=== PATIENT | female | born 1970 | race Caucasian/White ===

== ENCOUNTER → 2024-03-15 06:37 | Day surgery (SDC) | payer OTHER, SELFPAY | LOC: GI 06:37 | PROVIDERS: ATTENDING PHYSICIAN Internal Medicine Gastroenterology | DX: D12.2 Benign neoplasm of ascending colon (principal); K63.5 Polyp of colon; K64.8 Other hemorrhoids; K22.89 Other specified disease of esophagus; K44.9 Diaphragmatic hernia without obstruction or gangrene; B96.81 Helicobacter pylori [H. pylori] as the cause of diseases classified elsewhere; K31.89 Other diseases of stomach and duodenum; K21.9 Gastro-esophageal reflux disease without esophagitis; Z86.010 Personal history of colon polyps; Z87.19 Personal history of other diseases of the digestive system | CPT/HCPCS: 45385; 45380; 43239; 88305; 88342 ==

== ENCOUNTER → 2024-03-18 08:45 | Outpatient (REF) | payer OTHER, SELFPAY | LOC: HWRAD 08:45 | PROVIDERS: ATTENDING PHYSICIAN Family Medicine; REFERRING PHYSICIAN Obstetrics & Gynecology | DX: Z78.0 Asymptomatic menopausal state (principal); Z13.820 Encounter for screening for osteoporosis; Z12.31 Encounter for screening mammogram for malignant neoplasm of breast | CPT/HCPCS: 77063; 77067; 77080 ==

== ENCOUNTER → 2024-09-29 09:18 | Outpatient (REF) | payer OTHER, SELFPAY | LOC: HWRAD 09:18 | PROVIDERS: ATTENDING PHYSICIAN Family Medicine | DX: E04.9 Nontoxic goiter, unspecified (principal); M54.2 Cervicalgia | CPT/HCPCS: 76536 ==

== ENCOUNTER → 2024-10-07 07:00 | Outpatient (REF) | payer OTHER, SELFPAY | LOC: RAD 07:00 | PROVIDERS: ATTENDING PHYSICIAN Family Medicine | DX: M54.2 Cervicalgia (principal); R22.1 Localized swelling, mass and lump, neck | CPT/HCPCS: 70491; Q9967 ==

== ENCOUNTER → 2024-12-14 08:47 | Outpatient (REF) | payer OTHER, SELFPAY | LOC: RAD 08:47 | PROVIDERS: ATTENDING PHYSICIAN Physician Assistant; FAMILY PHYSICIAN Family Medicine | DX: D12.2 Benign neoplasm of ascending colon (principal) | CPT/HCPCS: 74246 ==

== ENCOUNTER → 2025-03-29 17:07 | Outpatient (REF) | payer OTHER, SELFPAY | LOC: WDC 17:07 | PROVIDERS: ATTENDING PHYSICIAN Obstetrics & Gynecology; FAMILY PHYSICIAN Family Medicine | DX: Z12.31 Encounter for screening mammogram for malignant neoplasm of breast (principal) | CPT/HCPCS: 77063; 77067 ==